=== PATIENT | male | born 1955 | race Caucasian/White ===

== ENCOUNTER → 2018-12-02 11:55 | Outpatient (CLI) | payer OTHER, SELFPAY ==
[2018-12-02 15:07] LABS: Alanine Aminotransferase 52 U/L (12-78); Alkaline Phosphatase 92 U/L (46-116); Aspartate Amino Transferase 31 U/L (15-37); Bilirubin,Direct 0.1 mg/dL (0.0-0.2); Bilirubin,Indirect 0.4 mg/dL (0.0-0.9); Bilirubin,Total 0.5 mg/dL (0.2-1.0); Chol/HDL Ratio 4.5 (1-3.5); Cholesterol 200 mg/dL (140-200); HDL Cholesterol 44 mg/dL (27-67); Total Protein,Serum 7.8 gm/dL (6.4-8.2)
[2018-12-02 15:09] LABS: Triglycerides 493 mg/dL (30-200)
== END ==
PROVIDERS: Visit Provider Urology
DX: E78.49 Other hyperlipidemia (principal); I11.9 Hypertensive heart disease without heart failure
CPT/HCPCS: 80061; 80076

== ENCOUNTER → 2019-06-06 06:48 | Outpatient (CLI) | payer OTHER, SELFPAY ==
--- NOTE | 2019-06-06 06:53 | NM_ITS ---
History: Hypertension, diabetes, hyperlipidemia, family history and chest pain Procedure: Patient received a 0.4 mg of intravenous Lexiscan, resting heart rate 55 bpm, resting blood pressure 142/77, with Lexiscan maximum heart rate achieve was 93 bpm which is less than 85% of the maximum predicted heart rate and blood pressure was 148/78. WIth Lexiscan patient denied any complained of chest pain. Electrocardiogram: Resting electrocardiogram showed sinus rhythm with Lexiscan there is less than 1.5mm ST segment depression noted from the baseline EKG. The EKG portion of the Lexiscan Myoview is nondiagnostic. Cardias Stress and Resting SPECT images: Cardias Stress and Resting SPECT images were obtained using technetium 99m Myoview 30.2 mCi stress and 10.06 mCi at rest. Gated SPECT further analysis of segmental wall motion and calculation of ejection fraction also done. Cardiac stress and resting SPECT show uniform myocardial activity without segmental perfusion abnormality, the computer derived ejection fraction is over 60% with no regional wall motion abnormality, right ventricle is normal size and contractility. Conclusion: 1. The EKG portion of the Lexiscan Myoview is nondiagnostic 2. No scintigraphic evidence of reversible ischemia seen, computer derived ejection fraction is over 60 % with no regional wall motion abnormality. 3. Normal Lexiscan Myoview study.
--- NOTE | 2019-06-06 11:07 | HMH.ITSHM ---
Current Home Medications as stated by this patient Lamont Cronin or hr representative. [] pantoprazole losartan cardedilol fenofibrate metformin cardedilol asa atorvastatin
== END ==
PROVIDERS: PCP Nurse Practitioner; Visit Provider Internal Medicine
DX: R07.9 Chest pain, unspecified (principal); I11.9 Hypertensive heart disease without heart failure; I25.10 Atherosclerotic heart disease of native coronary artery without angina pectoris; R06.02 Shortness of breath
CPT/HCPCS: 78452; 93017; A9502; J2785

== ENCOUNTER → 2020-12-24 06:19 | Outpatient (CLI) | payer MEDICARE, SELFPAY ==
--- NOTE | 2020-12-24 06:20 | CA_ITS ---
APPROVED REPORT EXAM: Comprehensive 2D, Doppler, and color-flow Echocardiogram Call Center Manager: Karishma Prather RT(R) Ht: 5 ft 7 in Wt: 150lbs BSA: 1.79 BP: 112/67 mmHg Indications: CP, SOB, CM, COPD, MV DISORDER, HTN, hyperlipdemia 2D Dimensions LVOT 2.00 cm (M/F) 1.5-2.5 LA Volume 31.70 mL LA Volume Index 17.70 mL/m2 (M/F) 16-34 M-Mode Dimensions RVDd 2.83 cm (0.9-2.6) LA Diam 3.32 cm (1.9-4.0) LVDd 4.00 cm (3.5-5.7) Ao Diam 2.97 cm (2.0-3.7) LVDs 2.94 cm (3.5-5.7) IVSd 0.72 cm (0.6-1.1) PWd 0.90 cm (0.6-1.1) EF (Teich) 52.40% FS 26.50% EDV (Teich) 70.00 mL ESV (Teich) 33.30 mL LV Diastology E Decel Time 193.00 (160-240 msec) E/A Ratio 0.7 MED E' 8.60 (< 7 cm/sec) E'/MED E' Ratio 6.98 (>14) LAT E' 7.60 (<10 cm/sec) E/LAT E' Ratio 7.89 (>14) Mitral Valve MV E Max Xavi. 60.00 (40-130 cm/s) MV A Velocity 87.00 (40-130 cm/s) E/A Ratio 0.69 MV Decel. Time 193.00 (160-240 ms) MV PHT 57.00 ms Tricuspid Valve TR P. Velocity 280.00 cm/s RAP Estimate 10.00 mmHg RVSP 41.30 mmHg Left Ventricle Left atrium is mildly enlarged, left ventricle is normal size, mild concentric left ventricular hypertrophy, visually estimated ejection fraction 55% with no regional wall motion abnormality, grade 1 diastolic dysfunction seen without tissue Doppler evidence of raise left atrial pressure. Right Ventricle Right atrium and right ventricle mildly enlarged with normal contractility. Aortic Valve Aortic valve is minimally thickened and calcified, there is no aortic stenosis or aortic insufficiency. Mitral Valve Anterior mitral valve leaflets thickened and calcified, without restriction in the leaflet mobility, there is no mitral stenosis, there is mild mitral regurgitation. Tricuspid Valve Tricuspid valve is minimally thickened, there is moderate tricuspid regurgitation, calculated right ventricular systolic pressure 37 mmHg. Pulmonic Valve Pulmonic valve is poorly visualized. Great Vessels Aortic root is normal size. Pericardium No significant pericardial effusion noted. Conclusion 1. Mild biatrial enlargement, normal left ventricular size, mild concentric left ventricular hypertrophy, visually estimated ejection fraction 55% with no regional wall motion abnormality, grade 1 diastolic dysfunction seen without tissue Doppler evidence of raised left atrial pressure. 2. Mildly enlarged right ventricle with normal contractility. 3. Abnormal thickened anterior mitral leaflet with mild calcification, there is no mitral stenosis, there is mild mitral regurgitation 4. Moderate tricuspid regurgitation, calculated right ventricular systolic pressure is 37 mmHg. 5. No significant pericardial effusion noted. Electronically signed by : Vinny Mitchell, 12/24/2020 14:42:10
--- NOTE | 2020-12-24 06:27 | NM_ITS ---
APPROVED REPORT Exam: Nuclear Stress Test Indication: HTN, D.M., HYPERLIPIDEMIA, FM HX, C.P. Patient Location: Outpatient Stress Tech: LUZMA NOVAK MO Tech:Radha Sanchez, ARRT RT(R)(N) Ht: 5 ft 7 in Wt: 150 lbs HR: 61 bpm BP: 132/66 mmHg BSA: 1.79 m2 BMI: 23.4 History: HTN, D.M., HYPERLIPIDEMIA, FM HX, C.P. Procedure: Patient exercised on Otoniel protocol 4:30 minutes and sec, resting heart rate 61 bpm, resting blood pressure 132/66 mmHg, with exercise maximum heart rate achived was 124 bpm which is 87 % of the maximum predicted heart rate and blood pressure was 194/83 mmHg. Patient denied any complaint of chest pain. Patient has Adequate exercise capacity, achieved 7.0 METs of workload on treadmill, the blood pressure response to exercise was Normal. Electrocardiogram Resting electrocardiogram showed sinus rhythm, with exercise there is less than 1.[address] segment depression noted from the baseline EKG. The EKG portion of the exercise Myoview is negative for ischemia. Cardiac Stress and Resting SPECT Images: Cardiac Stress and Resting SPECT images were obtained using technetium 99m Myoview 32.1 mCi stress and 10.37 mCi at rest. Gated SPECT for analysis of segmental wall motion and calculation of the ejection fraction also done. Prone images were also obtained. Cardiac stress and resting SPECT images show uniform myocardial activity without segmental perfusion abnormality, computer derived ejection fraction is 55% with no regional wall motion abnormality, right ventricle is mildly enlarged with normal contractility. Conclusion: 1. The EKG of the exercise Myoview is negative for ischemia, patient has adequate exercise capacity achieved 7 mets of workload on treadmill, the blood pressure response to exercise was adequate, there was no exercise-induced chest discomfort. 2. No scintigraphic evidence of reversible ischemia seen at this level of exercise, computer derived ejection fraction 55% with no regional wall motion abnormality, right ventricle is mildly enlarged with normal contractility. 3. Normal exercise myocardial perfusion imaging. Electronically signed by : Vinny Mitchell, 12/24/2020 13:39:14
--- NOTE | 2020-12-24 06:27 | CA_ITS ---
APPROVED REPORT Exam: Exercise Treadmill Technologist: Liana Akins, Ht: 5 ft 7 in Wt: 150 lbs BSA: 1.79 m2 HR: 61 bpm BP: 132/66 mmHg Medical History Medications: Aspirin,,,,, Metformin,,,,, Carvedilol,,,,, Protonix,,,,, FeNOfibrate,,,,, Losartan HCTZ,,,,, CiALIS,,,,, Xyzal,,,,, AtrovASTATIN,,,,, Stress Test Details Test: Otoniel HR Resting HR: 75 bpm Max Heart Rate (APMHR): 155 bpm Max HR Achieved: 135 bpm Target HR (85% APMHR): 131 bpm % of APMHR: 87 Recovery HR: 88 bpm BP Resting BP: 132/66 mmHg Max BP: 194/83 mmHg Recovery BP: 157.0/77.0 mmHg ECG Medications Administered Aminophylline ( mg at ) Clinical Exercise duration: 04:30 min Highest Stage Achieved: Exercise capacity: 7.0 METs Stress ECG Conclusion Max HR - 135: %of PM -87.1: Max B/P - 194/83: Mets: 7.0 - test stopped due to shortness of breath resolved in recovery. Symptoms - denies chest pain - reported shortness of breath at peak exercise. Occ. PVC - [address]-T changes - Less than 1.[address] depression. Images to follow. Test Summary REST . . . . . . . Standing REST . . . . . . . Sitting REST 11:35 0.0 0.0 75 . 132/ 66 . . Stage 1 01:00 10.0 1.7 100 . . . . Stage 1 02:00 10.0 1.7 112 . . . . Stage 1 03:00 10.0 1.7 122 . 130/ 90 . . Stage 2 . . . . . . . Cardiolite injected Stage 2 01:00 12.0 2.5 130 . . . . Stage 2 01:30 12.0 2.5 134 . . . Stop exercise at 04:30 RECOVERY 01:00 0.0 0.0 119 . . . . RECOVERY 02:00 0.0 0.0 94 . 194/ 83 . . RECOVERY 03:00 0.0 0.0 93 . 171/ 83 . . RECOVERY 04:00 0.0 0.0 86 . 171/ 83 . . RECOVERY 04:21 0.0 0.0 88 . 157/ 70 . . Electronically signed by : Vinny iMtchell, 12/24/2020 13:33:15
== END ==
LOC: RAD 06:20
PROVIDERS: PCP Nurse Practitioner; Visit Provider Nurse Practitioner Family
DX: E78.5 Hyperlipidemia, unspecified (principal); I05.9 Rheumatic mitral valve disease, unspecified; I11.0 Hypertensive heart disease with heart failure; I20.9 Angina pectoris, unspecified; I27.20 Pulmonary hypertension, unspecified; J44.9 Chronic obstructive pulmonary disease, unspecified; K21.9 Gastro-esophageal reflux disease without esophagitis; N52.9 Male erectile dysfunction, unspecified; R94.31 Abnormal electrocardiogram [ECG] [EKG]
CPT/HCPCS: 78452; 93017; 93306; A9502

== ENCOUNTER → 2022-05-05 10:13 | Outpatient (CLI) | payer MEDICARE, SELFPAY | PROVIDERS: Visit Provider Nurse Practitioner | DX: G47.33 Obstructive sleep apnea (adult) (pediatric) (principal); I10 Essential (primary) hypertension; R53.83 Other fatigue; R06.83 Snoring | CPT/HCPCS: G0399 ==

== ENCOUNTER 2024-04-03 09:54 | Outpatient (CLI) | payer MEDICARE, SELFPAY ==
[2024-04-03 10:46] LABS: Alanine Aminotransferase 34 U/L (12-78); Alkaline Phosphatase 51 U/L (38-126); Aspartate Amino Transferase 34 U/L (17-59); Bilirubin,Direct 0.2 mg/dl (0.0-0.4); Bilirubin,Indirect 0.3 mg/dL (0.0-0.9); Bilirubin,Total 0.5 mg/dl (0.2-1.3); Bilirubin,Unconjugated 0.3 mg/dL (0.0-1.1)
[2024-04-03 10:47] LABS: Albumin Level 4.5 g/dl (3.5-5.0); Chol/HDL Ratio 2.4 (1-3.5); Cholesterol 139 mg/dl (140-200); HDL Cholesterol 58 mg/dl (40-60); Total Protein,Serum 7.7 g/dl (6.3-8.2); Triglycerides 148 mg/dl (30-150); VLDL Cholesterol 30 mg/dL (0-40)
[2024-04-03 10:58] LABS: Direct LDL Cholesterol 65.58 mg/dL (100-129)
== END 2024-04-03 23:59 | disposition home or self-care (01) ==
PROVIDERS: Visit Provider Nurse Practitioner
DX: R06.00 Dyspnea, unspecified (principal); Z01.810 Encounter for preprocedural cardiovascular examination; G47.33 Obstructive sleep apnea (adult) (pediatric); I25.118 Atherosclerotic heart disease of native coronary artery with other forms of angina pectoris; E13.69 Other specified diabetes mellitus with other specified complication; E78.5 Hyperlipidemia, unspecified; N52.2 Drug-induced erectile dysfunction; I11.9 Hypertensive heart disease without heart failure; E78.2 Mixed hyperlipidemia; N18.2 Chronic kidney disease, stage 2 (mild); J44.9 Chronic obstructive pulmonary disease, unspecified
CPT/HCPCS: 36415; 80061; 80076

== ENCOUNTER 2024-04-04 07:31 | Outpatient (CLI) | payer MEDICARE, SELFPAY ==
--- NOTE | 2024-04-04 07:31 | CA_ITS ---
APPROVED REPORT EXAM: Comprehensive 2D, Doppler, and color-flow Echocardiogram Bottom Hoop Driver: Bessie An RDCS Ht: 5 ft 8 in Wt: 150lbs BSA: 1.81 BP: 121/69 mmHg Indications: PRE OP THROAT CYST BIOPSY,CAD,LUKE, COPD,HTN,HLP M-Mode Dimensions RVDd 1.83 cm (0.9-2.6) LA Diam 3.48 cm (1.9-4.0) LVDd 5.88 cm (3.5-5.7) LVDs 4.16 cm (3.5-5.7) IVSd 0.54 cm (0.6-1.1) PWd 0.54 cm (0.6-1.1) EF (Teich) 55.30% FS 29.30% EDV (Teich) 171.90 mL ESV (Teich) 76.80 mL LV Diastology E Decel Time 293 (160-240 msec) E/A Ratio 0.5 Mitral Valve MV E Max Xavi. 30.0 (40-130 cm/s) MV A Velocity 55.0 (40-130 cm/s) E/A Ratio 0.55 MV PHT 86.0 ms Tricuspid Valve TR P. Velocity 305.00 cm/s RAP Estimate 10.00 mmHg RVSP 47.20 mmHg Left Ventricle The left ventricle is normal size. The left ventricular systolic function is low normal. Proximal septal thickening is noted. There is borderline global hypokinesis present. The septum is asynchronous. Diastolic function is indeterminate. LVEF is 50%. Right Ventricle Right ventricle is moderately dilated. Right ventricle is mildly hypokinetic. Atria Left atrium is mildly dilated. Right atrium is mildly dilated. There is no Doppler evidence of interatrial shunt. Aortic Valve The aortic valve is mildly thickened. There is no aortic valvular stenosis. Trace aortic regurgitation. Mitral Valve The mitral valve leaflets are mildly thickened. No evidence of mitral valve stenosis. Mild mitral regurgitation. Tricuspid Valve The tricuspid valve leaflets are thin and pliable. Moderate tricuspid regurgitation. RVSP is 30-35 mmHg. Pulmonic Valve The pulmonary valve is normal in structure. Mild pulmonic regurgitation. Great Vessels The aortic root is normal in size. The ascending aorta is not well-visualized. IVC is normal in size and collapses >50% with inspiration. Pericardium There is no pericardial effusion. Other Information Study Quality: Fair Conclusion Low normal LV systolic function (LVEF 50%). Moderate RV dilation with mild reduction in RV function. Mild biatrial dilation. Mild MR, mild PI. Moderate TR. RVSP 30-35 mmHg. Electronically signed by : Maribel Guan MD 04/06/2024 01:17:25
== END 2024-04-04 23:59 | disposition home or self-care (01) ==
LOC: RT 07:31
PROVIDERS: PCP Student in an Organized Health Care Education/Training Program; Visit Provider Nurse Practitioner
DX: Z01.810 Encounter for preprocedural cardiovascular examination (principal); I11.9 Hypertensive heart disease without heart failure; I25.118 Atherosclerotic heart disease of native coronary artery with other forms of angina pectoris; N52.2 Drug-induced erectile dysfunction; E78.2 Mixed hyperlipidemia; N18.2 Chronic kidney disease, stage 2 (mild); R06.00 Dyspnea, unspecified
CPT/HCPCS: 93306

== ENCOUNTER 2025-07-23 10:19 | Outpatient (CLI) | payer MEDICARE, SELFPAY ==
--- OUTSIDE RECORDS SUMMARY | 2025-07-23 10:35 | XMS_ITS | Clinical Summary ---
Author Organization [facility] Address [address] [place] [address] Care Team Providers Care Stroke Belt Sander Operator Name Role Phone Dyan Jj Saul HERNANDES Primary Care Provider [phone] Allergies Active Allergy Reactions Criticality Noted Date Comments Lisinopril Cough,Other - please document in the comment field High 04/08/2013 Medications montelukast (Singulair) 10 MG tablet TAKE ONE (1) TABKET BY MOUTH DAILY Active Farxiga 5 MG tablet 07/08/2024 Active metFORMIN (Glucophage) 1000 MG tablet TAKE ONE (1) TABLET EVERY DAY BY ORAL ROUTE FOR 90 DAYS. 07/01/2024 Active levocetirizine (Xyzal) 5 MG tablet Take 1 tablet (5 mg) by mouth. Active atorvastatin (Lipitor) 80 MG tablet TAKE ONE (1) TABLET EVERY DAY BY ORAL ROUTE FOR 90 DAYS. Active fenofibrate (Triglide) 160 MG tablet Take 1 tablet (160 mg) by mouth. Active losartan-hydroCH LOROthiazide (Hyzaar) 50-12.5 MG tablet Take 1 tablet by mouth. Active Aspirin Low Dose 81 MG EC tablet TAKE ONE (1) TABLET EVERY DAY BY ORAL ROUTE FOR 90 DAYS. Active carvedilol (Coreg) 12.5 MG tablet Take 1 tablet (12.5 mg) by mouth 2 (two) times a day. 07/01/2024 Active pantoprazole (Protonix) 40 MG EC tablet TAKE ONE (1) TABLET EVERY DAY BY ORAL ROUTE FOR 90 DAYS. Active Multiple Vitamins-Mineral s (One Daily Mens Health) tablet TAKE ONE (1) TABLET EVERY DAY BY ORAL ROUTE. 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 Social History Tobacco Use Types Packs/Day Years Used Date Smoking Tobacco: Former Cigarettes Smokeless Tobacco: Never Alcohol Use Standard Drinks/Week Comments Never 0 (1 standard drink = 0.6 oz pur e alcohol) Sex and Gender Information Value Date Recorded Sex Assigned at Not on file Legal Sex Male 5:01 PM EDT Gender Identity Not on file Sexual Orientation Not on file Last Filed Vital Signs Vital Sign Reading Time Taken Comments Blood Pressure 118/71 09/01/2024 1:53 PM EDT Pulse 82 09/01/2024 1:53 PM EDT Temperature - - Respiratory Rate - - Oxygen Saturation - - Inhaled Oxygen Concentration - - Weight 65.3 kg (144 lb) 09/01/2024 1:53 PM EDT Height 170.2 cm (5' 7 ) 09/01/2024 1:53 PM EDT Body Mass Index 22.55 09/01/2024 1:53 PM EDT Plan of Treatment Health Maintenance Due Date Last Done Comments [facility]-Depression Screening 1955 [facility]-Diabetes: Hemoglobin A1C 1955 [facility]-Hepatitis C Screening 1955 [facility]-Medicare Annual Wellness (AWV) 1955 [facility]/Child/Adol SDOH Screenings 1955 Diabetes: Dental Exam 1965 [facility]- SDOH Screenings 1973 [facility]-Adult SDOH Screenings 1973 CT Colonography 02/02/2000 Colonoscopy 02/02/2000 FIT-DNA 02/02/2000 FIT 02/02/2000 FOBT 02/02/2000 Sigmoidoscopy 02/02/2000 [facility]-Colorectal Cancer Screening 02/02/2000 [facility]-Zoster Vaccines (2 of 2) 02/27/2019 01/02/2019 [facility]-Abdominal Aortic Aneurysm (AAA) Screening 02/02/2020 [facility]-[id number]-32 Vaccine (5 - season) 2024 10/29/2023, 10/06/2021, 03/04/2021, Additional history exists [facility]-Pneumococcal Vaccine: 50+ Years (3 of 3 - PCV20 or PCV21) 07/06/2025 07/06/2020, 03/28/2019 [facility]-Influenza Vaccine (#1) 07/20/202508/20, 09/18/2023, 09/01/2022, Additional history exists [facility]-DTaP,Tdap,and Td Vaccines (2 - Td or Tdap) 12/13/2028 12/13/2018, 01/24/1997 [facility]-Hepatitis A Vaccines Aged Out 01/07/2019 No longer eligible based on patient's age to complete this topic [facility]-RSV Vaccine: 60+ Years or Completed 10/30/2023 HPV Vaccines Aged Out No longer eligi ble based on patient's age to complete this topic [facility]-HIB Vaccines Aged Out No longer e ligible based on patient's age to complete this topic [facility]-IPV Vaccines Aged Out No longer e ligible based on patient's age to complete this topic [facility]-Rotavirus Vaccines Aged Out No lo nger eligible based on patient's age to complete this topic Insurance [employer] Care Teams Stroke Belt Sander Operator Relationship Specialty Start Date End Date Dyan Jj APRN [address] [place], [place] [id number] PCP - General 09/01/24
--- OUTSIDE RECORDS SUMMARY | 2025-07-23 10:35 | XMS_ITS | Clinical Summary ---
Author Organization [facility] Address [address] [place] [address] Phone Care Team Providers Care Electronic Engraver Name Role Phone Unavailable Primary Care Provider Unavailabl e Allergies Active Allergy Reactions Criticality Noted Date Comments Lisinopril Other (See Comments) Low 10/02/2022 Medications atorvastatin (LIPITOR) 80 mg Oral Tablet take one (1) tablet by mouth daily Active aspirin 81 mg Oral Tablet, Delayed Release (E.C.) Take 1 tablet every day by oral route for 90 days. 05/26/2019 Active levocetirizine (XYZAL) 5 mg Oral Tablet take one (1) tablet by mouth daily Active losartan-hydroch lorothiazide (HYZAAR) 50-12.5 mg Oral Tablet Take 1 Tablet by mouth daily. Active metFORMIN (GLUCOPHAGE) 1,000 mg Oral Tablet Take 1 tablet every day by oral route for 90 days. 06/25/2023 Active montelukast (SINGULAIR) 10 mg Oral Tablet TAKE ONE (1) TABKET BY MOUTH DAILY Active ONE DAILY FOR MEN 0.4-600 mg-mcg Oral Tablet TAKE ONE (1) TABLET EVERY DAY BY ORAL ROUTE. 10/16/2023 Active pantoprazole (PROTONIX) 40 mg Oral Tablet, Delayed Release (E.C.) take one (1) tablet by mouth daily Active Active Problems Problem Noted Date Diagnosed Date Traumatic complete tear of right rotator cuff Biceps tendinitis of right upper extremity 10/25 Surgical History Surgery Date Site/Laterality Comments HERNIA REPAIR Medical History Medical History Date Comments Hypertension Diabetes mellitus (HCC) Mixed hyperlipidemia GERD (gastroesophageal reflux disease) Social History Tobacco Use Types Packs/Day Years Used Date Smoking Tobacco: Never Smokeless Tobacco: Never Tobacco Cessation:Counseling Given: Not Answered Alcohol Use Standard Drinks/Week Comments Never 0 (1 standard drink = 0.6 oz pur e alcohol) Sex and Gender Information Value Date Recorded Sex Assigned at Not on file Legal Sex Male 8:14 PM EDT Gender Identity Not on file Sexual Orientation Not on file Obstetrics History Last Filed Vital Signs Vital Sign Reading Time Taken Comments Blood Pressure - - Pulse - - Temperature - - Respiratory Rate - - Oxygen Saturation - - Inhaled Oxygen Concentration - - Weight 68.9 kg (152 lb) 10/29/2023 10:35 AM EST Height 170.2 cm (5' 7 ) 10/29/2023 10:35 AM EST Body Mass Index 23.81 10/29/2023 10:35 AM EST Plan of Treatment Health Maintenance Due Date Last Done Comments Wellness Exam Medicare 1958 Hepatitis C Screening 1973 Cologuard 02/02/2000 Colon Cancer Screening 02/02/2000 Colonoscopy 02/02/2000 FIT 02/02/2000 Sigmoidoscopy 02/02/2000 Virtual Colonography 02/02/2000 COVID-19 Vaccine ( season) 2024 10/29/2023, 10/06/2021, 03/04/2021, Additional history exists Pneumococcal Vaccine 50+ (3 of 3 - PCV20 or PCV21) 07/06/2025 07/06/2020, 03/28/2019 Influenza Vaccine (#1) 2025 , 09/01/2022, 08/26/2021, Additional history exists DTaP/TDaP/Td (2 - Td or Tdap) 12/13/2028 12/13/2018, 01/24/1997 Zoster Completed 09/03/2020, 01/02/2019 Hepatitis B Vaccine Aged Out No longe r eligible based on patient's age to complete this topic Meningococcal B Vaccine Aged Out No l onger eligible based on patient's age to complete this topic Insurance JUSTIN HICKEY MR JUSTIN HICKEY MR
[2025-07-23 10:36] LABS: Hematocrit 39.4 % (42.0-52.0); Hemoglobin 13.3 g/dL (14.1-18.0); Immature Granulocytes % 0.5 %; Mean Corpuscular HGB Conc 33.8 g/dL (31.8-35.4); Mean Corpuscular Hemoglobin 29.5 pg (27.0-31.2); Mean Corpuscular Volume 87.4 fl (80-94); Nucleated Red Blood Cells % 0 %; Platelet Count 288 K/mm3 (142-424); Red Blood Count 4.51 M/mm3 (4.60-6.20); Red Cell Distribution Width-SD 42.6 fL; White Blood Count 6.5 K/mm3 (4.8-10.8)
[2025-07-23 11:06] LABS: Alanine Aminotransferase 26 U/L (12-78); Albumin Level 4.3 g/dl (3.5-5.0); Alkaline Phosphatase 53 U/L (38-126); Anion Gap 10.7 mEq/L (5-15); Aspartate Amino Transferase 29 U/L (17-59); Bilirubin,Direct 0.1 mg/dl (0.0-0.4); Bilirubin,Indirect 0.4 mg/dL (0.0-0.9); Bilirubin,Total 0.5 mg/dl (0.2-1.3); Bilirubin,Unconjugated 0.4 mg/dL (0.0-1.1); Blood Urea Nitrogen 18 mg/dl (9-20); Calcium 9.6 mg/dl (8.4-10.2); Carbon Dioxide 32 mmol/L (22.0-30.0); Chloride 101 mmol/L (98-107); Cholesterol 124 mg/dl (140-200); Creatinine,Serum 1.30 mg/dl (0.66-1.25); Estimated Glomerular Filt Rate 55 ml/min (>60); GFR (African American) 66 ML/MIN (>60); Glucose 69 mg/dl (74-100); HDL Cholesterol 45 mg/dl (40-60); Magnesium 1.9 mg/dl (1.6-2.3); Potassium 3.7 mmoL/L (3.5-5.1); Sodium 140 mmol/L (136-145); Total Protein,Serum 7.0 g/dl (6.3-8.2); Triglycerides 115 mg/dl (30-150)
[2025-07-23 11:22] LABS: Free T4 (Free Thyroxine) 1.33 ng/dl (0.78-2.19)
[2025-07-23 12:34] LABS: Hemoglobin A1C 6.4 % (4.0-6.0)
[2025-07-23 14:13] LABS: Thyroid Stimulating Hormone 0.97 uIU/mL (0.465-4.68)
== END 2025-07-23 23:59 | disposition home or self-care (01) ==
LOC: LAB 10:22
PROVIDERS: PCP Nurse Practitioner Family; Visit Provider Nurse Practitioner
DX: I11.9 Hypertensive heart disease without heart failure (principal); E78.5 Hyperlipidemia, unspecified; E11.9 Type 2 diabetes mellitus without complications
CPT/HCPCS: 36415; 80048; 80061; 80076; 83036; 83735; 84439; 84443; 85025